=== PATIENT | female | born 1965 | race Caucasian/White ===

== ENCOUNTER → 2020-10-09 | Outpatient (REF) | LOC: LAB 08:16 | DX: Z13.29 Encounter for screening for other suspected endocrine disorder (principal); E78.5 Hyperlipidemia, unspecified; E11.9 Type 2 diabetes mellitus without complications; I10 Essential (primary) hypertension ==

== ENCOUNTER → 2021-02-12 | Outpatient (CLI) | payer BC | LOC: MAMMO 08:24 | DX: Z12.31 Encounter for screening mammogram for malignant neoplasm of breast (principal) ==

== ENCOUNTER → 2023-03-05 | Outpatient (CLI) | payer OTHER ==
[~2023-03-05] MED LIST: ATORVASTATIN CA80 MG PO; CYCLOBENZAPRINE10 M1 PO; FARXIGA10 MG PO; HYDROCHLOROTHIA1 T15 PO; METFORMIN HYD1000 MG PO; ONDANSETRON HYDR4 MG PO; PAROXETINE HYDR20 MG PO
== END ==
LOC: MAMMO 08:24
DX: Z12.31 Encounter for screening mammogram for malignant neoplasm of breast (principal)

== ENCOUNTER → 2024-01-13 | Outpatient (CLI) | payer OTHER | LOC: RAD 09:31 | DX: I87.8 Other specified disorders of veins (principal) ==

== ENCOUNTER → 2024-03-10 | Outpatient (CLI) | payer OTHER | LOC: MAMMO 08:29 | DX: Z12.31 Encounter for screening mammogram for malignant neoplasm of breast (principal) ==